=== PATIENT | female | born 1985 | race Hispanic/Latino ===

== ENCOUNTER 2017-09-14 | Emergency (ER) | payer OTHER ==
--- NOTE | 2017-09-14 11:15 | EDPHYS ---
Physician Documentation [facility] Name: Edna Matamoros Age: 31 yrs Sex: Female : 1985 Arrival Date: 09/14/2017 Time: 11:08 Bed Waiting Private MD: ED Physician Maciej De La Paz HPI: 09/14 11:20 This 31 yrs old Female presents to ER via Ambulatory with complaints of Fever, kb Sore Throat. 11:20 The patient or guardian reports cough, that is intermittent, described as mild, with no kb sputum. Onset: The symptoms/episode began/occurred yesterday. Severity of symptoms: At their worst the symptoms were moderate, in the emergency department the symptoms are unchanged. Modifying factors: The symptoms are alleviated by nothing, the symptoms are aggravated by nothing. Associated signs and symptoms: Pertinent positives: earache, fever, sore throat, dizziness. The patient has not experienced similar symptoms in the past. The patient has not recently seen a physician. Pt c/o malaise, ear pain and pressure, dizziness, cough, sore throat, facial pain, and fever that started yesterday and has been becoming worse. States "I feel fluid moving around in my ears that makes me dizzy.". Historical: - Allergies: 11:10 No Known Allergies; la1 - PMHx: 11:10 ectopic ; la1 - PSHx: 11:10 None; la1 - Immunization history:: Adult Immunizations up to date. - Social history:: Smoking status: Patient/guardian denies using tobacco. ROS: 11:16 Neck: Negative for injury, pain, and swelling, Cardiovascular: Negative for chest pain, kb palpitations, and edema, Abdomen/GI: Negative for abdominal pain, nausea, vomiting, diarrhea, and constipation, Back: Negative for injury and pain, : Negative for injury, bleeding, discharge, and swelling, MS/Extremity: Negative for injury and deformity, Skin: Negative for injury, rash, and discoloration, Neuro: Negative for headache, weakness, numbness, tingling, and seizure. 11:16 Constitutional: Positive for chills, fever, malaise, Negative for body aches, fatigue, poor PO intake, weight loss. 11:16 ENT: Positive for ear pain, sinus congestion, sinus pain, sore throat. 11:16 Respiratory: Positive for cough, Negative for dyspnea on exertion, hemoptysis, orthopnea, pleurisy, shortness of breath, sputum production, wheezing. Exam: 11:16 Constitutional: This is a well developed, well nourished patient who is awake, alert, kb and in no acute distress. Neck: Trachea midline, no thyromegaly or masses palpated, and no cervical lymphadenopathy. Supple, full range of motion without nuchal rigidity, or vertebral point tenderness. No Meningismus. Chest/axilla: Normal chest wall appearance and motion. Nontender with no deformity. No lesions are appreciated. Cardiovascular: Regular rate and rhythm with a normal S1 and S2. No gallops, murmurs, or rubs. Normal PMI, no JVD. No pulse deficits. Respiratory: Lungs have equal breath sounds bilaterally, clear to auscultation and percussion. No rales, rhonchi or wheezes noted. No increased work of breathing, no retractions or nasal flaring. Abdomen/GI: Soft, non-tender, with normal bowel sounds. No distension or tympany. No guarding or rebound. No evidence of tenderness throughout. Skin: Warm, dry with normal turgor. Normal color with no rashes, no lesions, and no evidence of cellulitis. MS/ Extremity: Pulses equal, no cyanosis. Neurovascular intact. Full, normal range of motion. Neuro: Awake and alert, GCS 15, oriented to person, place, time, and situation. Cranial nerves II-XII grossly intact. Motor strength 5/5 in all extremities. Sensory grossly intact. Cerebellar exam normal. Normal gait. 11:16 Head/face: Sinus tenderness, that is moderate, is located over the right frontal sinus, left frontal sinus, right ethmoid sinus and left ethmoid sinus. 11:16 ENT: External ear(s): are unremarkable, Ear canal(s): are normal, TM's: bulging, on the right, erythema, that is moderate, on the right, fluid levels, on the left, Nose: is normal, Mouth: is normal, Posterior pharynx: is normal. Vital Signs: 11:10 BP 112 / 90; Pulse 88; Resp 19; Temp 97(TE); Pulse Ox 97% on R/A; Weight 67.13 kg; la1 Height 5 ft. 3 in. (160.02 cm); 11:10 Body Mass Index 26.22 (67.13 kg, 160.02 cm) la1 MDM: 11:08 Patient medically screened. kb 11:13 Data reviewed: vital signs, nurses notes. Data interpreted: Pulse oximetry: on room air kb is 97 %. Interpretation: normal. Counseling: I had a detailed discussion with the patient and/or guardian regarding: the historical points, exam findings, and any diagnostic results supporting the discharge/admit diagnosis, the need for outpatient follow up, a family practitioner, to return to the emergency department if symptoms worsen or persist or if there are any questions or concerns that arise at home. Administered Medications: No medications were administered Disposition: 14:04 Co-signature as Attending Physician, Maciej De La Paz MD I agree with the assessment and kdr plan of care. Disposition: 09/14/17 11:14 Discharged to Home. Impression: Acute sinusitis, Otitis media, unspecified, right ear. - Condition is Stable. - Discharge Instructions: Otitis Media, Adult, [id number], Sinusitis, [id number]. - Prescriptions for Augmentin 875- 125 mg Oral Tablet - take 1 tablet by ORAL route every 12 hours for 7 days; 14 tablet. - Medication Reconciliation Form, Thank You Letter, Antibiotic Education, Prescription Opioid Use form. - Follow up: Emergency Department; When: As needed; Reason: Worsening of condition. Follow up: Private Physician; When: 2 - 3 days; Reason: Recheck today's complaints, Continuance of care, Re-evaluation by your physician. - Notes: Use Flonase and a 24 hour antihistamine with decongestant (Zyrtec D, Claritin D, or Amara D) as directed for sinusitis. Signatures: Valencia Mcneil, GLASS WORKER-C GLASS WORKER-Ckb Maciej De La Paz MD MD [facility] Con Hoffman RN RN la1
--- NOTE | 2017-09-14 11:15 | ER ---
Nurse's Notes [facility] Name: Edna Matamoros Age: 31 yrs Sex: Female : 1985 Arrival Date: 09/14/2017 Time: 11:08 Bed Waiting Private MD: Diagnosis: Acute sinusitis;Otitis media, unspecified, right ear Presentation: 09/14 11:09 Presenting complaint: Patient states: I have been having cough, congestion, and pain in la1 my ears since last night. Transition of care: patient was not received from another setting of care. Onset of symptoms was September 14, 2017. Care prior to arrival: None. 11:09 Method Of Arrival: Ambulatory la1 11:09 Acuity: DARIAN 4 la1 Historical: - Allergies: 11:10 No Known Allergies; la1 - PMHx: 11:10 ectopic ; la1 - PSHx: 11:10 None; la1 - Immunization history:: Adult Immunizations up to date. - Social history:: Smoking status: Patient/guardian denies using tobacco. Screenin:12 Abuse screen: Denies threats or abuse. Nutritional screening: No deficits noted. la1 Tuberculosis screening: No symptoms or risk factors identified. Fall Risk None identified. Assessment: 11:11 General: Appears in no apparent distress. Behavior is calm, cooperative. Pain: la1 Complains of pain in face. Neuro: Level of Consciousness is awake, alert, obeys commands, Oriented to person, place, time, situation. Cardiovascular: Capillary refill < 3 seconds Patient's skin is warm and dry. Respiratory: Airway is patent Respiratory effort is even, unlabored, Respiratory pattern is regular, symmetrical. GI: No signs and/or symptoms were reported involving the gastrointestinal system. : No signs and/or symptoms were reported regarding the genitourinary system. EENT: Throat is clear. 11:12 Respiratory: Breath sounds are clear. la1 Vital Signs: 11:10 BP 112 / 90; Pulse 88; Resp 19; Temp 97(TE); Pulse Ox 97% on R/A; Weight 67.13 kg; la1 Height 5 ft. 3 in. (160.02 cm); 11:10 Body Mass Index 26.22 (67.13 kg, 160.02 cm) la1 ED Course: 11:08 Patient arrived in ED. tw3 11:08 Valencia Mcneil FNP-C is [facility]. kb 11:08 Maciej De La Paz MD is Attending Physician. kb 11:09 Triage completed. la1 11:10 Arm band placed on left wrist. la1 11:12 Call light in reach. la1 11:12 No provider procedures requiring assistance completed. Patient did not have IV access la1 during this emergency room visit. Administered Medications: No medications were administered Outcome: 11:14 Discharge ordered by . kb 11:20 Discharged to home ambulatory. la1 11:20 Condition: stable 11:20 Discharge instructions given to patient, Instructed on discharge instructions, follow up and referral plans. medication usage, Demonstrated understanding of instructions, follow-up care, medications, Prescriptions given X 1. 11:20 Patient left the ED. la1 Signatures: Valencia Mcneil FNP-C FNP-Ckb Attema, Lee, RN RN la1 Aliyah Greenberg tw3
== END 2017-09-14 11:20 | disposition home or self-care (01) ==
CPT/HCPCS: 99282